=== PATIENT | female | born 1970 | race Caucasian/White ===

== ENCOUNTER 2016-06-21 08:59 | Observation (INO) | payer OTHER ==
[~2016-06-21] VITALS: Ht 154.9 cm; Wt 80.2 kg
[~2016-06-21 08:59] MED LIST: AMPH20CA PO; ATRV10T PO; BUPR200T2 PO; CYCL10TA9 PO; HYDR-3825 PO; KLO1T PO; SERT20OR6 PO; TOPI50TA PO; TOPI50TA88 PO
[2016-06-21 09:18] VITALS: BP 126/67; PULSE 87; RESP 17; O2SAT 100
--- NOTE | 2016-06-21 09:27 | ED.REPORT ---
HPI-General Illness Date of Service Jun 21, 2016 ED Provider: Harleen Bruno MD A 45 year old female with a history of migraines, anxiety, and depression presents to the ED from complaining of severe headache onset 5 days ago with numbness in her head. Headache has not been relieved with the patient's normal medication Maxalt, patient reporting that this head ache is different than baseline headaches. Per , the patient has had intermittent slurred speech and a slight facial droop. Associated symptoms include blurry vision, tinnitus, photophobia, abdomen being "dry and pasty" , her "tongue feeling weird", and the left side of her face "feels different." She denies any fever, cough, chills, or incontinence. Patient reports an episode of chest pain 2 weeks ago, similar to episodes she has experienced in the past that were related to anxiety. Nursing Notes Stated Complaint: MIGRAINE Chief Complaint: Headache Nursing Notes Reviewed: Yes Allergies: Coded Allergies: Penicillins (Verified Allergy, Unknown, 11/21/15) oxycodone HCl (Verified Adverse Reaction, Mild, 04/14/15) Scheduled Atorvastatin (Lipitor) 10 Mg Tab 10 MG PO HS Calcium Carbonate (Calcium) 600 Mg Tablet 600 MG PO DAILY Ferrous Sulfate (Iron) 325 Mg Tablet 325 MG PO DAILY Sertraline HCl (Sertraline) 100 Mg Tablet 200 MG PO HS Topiramate (Topamax) 50 Mg Tablet 100 MG PO HS Scheduled PRN Clonazepam (Clonazepam) 1 Mg Tablet 1 MG PO HS PRN PRN For Anxiety Cyclobenzaprine (Cyclobenzaprine) 10 Mg Tablet 10 MG PO PRN Spasms Hydrocodone-Acetaminophen 7.5-325 mg (Hydrocodone-Acetaminophen 7.5-325 mg) 1 Each Tablet 1 TABLET PO Q4H PRN PRN For Pain Rizatriptan (Maxalt) 10 Mg Tablet 10 MG PO PRN Migraines General Time Seen by MD: 09:20 Chief Complaint Headache Hx Obtained From: Patient Arrived By: Walk-in Sudden in Onset?: No Onset Occurred: 5 days ago Symptom Duration: Since onset Location: : Head Severity: Current: Moderate Severity: Maximum: Moderate Recent Healthcare: Recent doctor visit Similar Sx Previous: No )( TPA Administration/Criteria Stroke Thrombolytic Therapy : TPA Considered: No TPA Administered Intravenously: No, exclusion criteria (symptoms for greater than 4 days. Not TPA candidate.) NIH Stroke Scale Level of Consciousness: Alert and responsive (0) Ask Month & Age: Both questions right (0) Open/Close Eyes/Hand Jig Filler: Performs both tasks (0) Horizontal EO Movements: None (0) Visual Linda: No visual loss (0) Facial Palsy: Minor paralysis (1) Right Arm Motor Drift (10s): No drift 10 sec (0) Left Arm Motor Drift (10s): No drift 10 sec (0) Right Leg Motor Drift (5s): No drift 5 sec (0) Left Leg Motor Drift (5s): No drift 5 sec (0) Limb Ataxia FNF/Heel-Mathis: Ataxia in 2 limbs (2) Sensation (Arms/Legs/Face): Pinprick less sharp (1) Language Aphasia: No aphasia, normal (0) Dysarthria: No dysarthria, normal (0) Extinction/Inattention: No exctinct/inattent (0) NIHSS Score: 4 Time NIHSS Performed: 09:20 Date NIHSS Performed: Jun 21, 2016 Past Medical History Past Medical History 2 weeks ago, patient was seen for chest pain and stabbing neck pain, the episode lasting 10 minutes. She reports episodes of similar pain occuring in the past that were related to anxiety. Migraines, usually takes Maxalt Anxiety Reports: Depression (Treated with medication.) Past Surgical History left ankle, right elbow, 2 breast reductions, osteo in right thumb Reports: Cholecystectomy, Hysterectomy Smoking History Former Smoker Social History Alcohol Use: Denies alcohol use Drug Use: Denies drug use Occupation lives with boyfriend, Review of Systems Slight facial droop. Left side of face "feels different." tinnitus abdomen "dry and pasty" tongue is "weird" Full Review of Systems Constitutional: Denies: Chills, Fever Eyes: Reports: Blurred bilateral, Photophobia Respiratory: Denies: Non-productive cough Female: Denies: Incontinence Neurologic: Reports: Headache, Numbness (head), Slurred speech Complete sys rev & neg: except as marked. Physical Exam visual acuity: 20/25 bilateral 20/30 Right 20/30 Left Vital Signs Vital Signs Date Time Temp Pulse Resp B/P Pulse Ox O2 Delivery O2 Flow Rate FiO2 06/21/16 11:24 77 13 113/52 100 Room Air 06/21/16 09:18 36.6 87 17 126/67 100 Room Air Initial VS: Reviewed General/Constitutional: Well-developed, Well-nourished Head / Eyes: Atraumatic, Normocephalic Neck: Supple, Non-tender General/Constitutional: Awake, Alert Head / Eyes: PERRL, No nystagmus Grossly blurry vision, but no visual field deficit. ENT: Atraumatic, Mucous membranes moist Respiratory / Chest: Atraumatic, Breath sounds NL, Breath sounds = bilat, No respiratory distress, No rales, No rhonchi, No wheezing Cardiovascular: Heart rate NL, Regular rhythm, Heart sounds NL, No gallop, No murmurs, No rubs Abdomen: No guarding, No rebound Upper Extremities Upper Extremity / MS: No edema Skin: Atraumatic, Color NL, Warm, Dry neuro: NIH is 4 Mild right-sided facial droop. Tongue deviates slightly to the left. Mild decreased sensation on entire right side. Mild ataxia on right side with finger nose and heel mathis. Interpretation & Diagnostics Interpretation & Diagnostics: UA clean neg urine preg Lab Results Interpretation Result Diagram: 06/21/16 0930 06/21/16 0930 Test 06/21/16 09:30 06/21/16 11:50 White Blood Count 9.3th/mm3 (3.8-10.1) Red Blood Count 4.47mil/mm3 (3.90-5.20) Hemoglobin 12.2g/dL (12.0-15.6) Hematocrit 38.0% (35.0-46.0) Mean Corpuscular Volume 85.0fL (81-100) Mean Corpuscular Hemoglobin 27.3pg (27.0-35.0) Mean Corpuscular Hemoglobin Concent 32.1% (32.0-37.0) Red Cell Distribution Width 14.8% (12.3-15.4) Platelet Count 247bil/L (150-400) Neutrophils (%) (Auto) 67.9% (40-74) Lymphocytes (%) (Auto) 22.6% (14-46) Monocytes (%) (Auto) 7.2% (4-12) Eosinophils (%) (Auto) 1.7% (0-5) Basophils (%) (Auto) 0.2% (0-3) Sodium Level 139mEq/L (134-144) Potassium Level 3.9mEq/L (3.5-5.2) Chloride Level 103mEq/L (97-108) Carbon Dioxide Level 21mmol/L (18-29) Blood Urea Nitrogen 10mg/dL (6-24) Creatinine 0.81mg/dL (0.57-1.00) Estimat Glomerular Filtration Rate 109mL/min (>59) Glucose Level 122mg/dL (60-99) Calcium Level 9.0mg/dL (8.5-10.1) Total Bilirubin 0.2mg/dL (0.0-1.2) Aspartate Amino Transf (AST/SGOT) 12U/L (0-50) Alanine Aminotransferase (ALT/SGPT) 6U/L (0-32) Alkaline Phosphatase 77U/L (25-150) Total Protein 6.7g/dL (6.4-8.4) Albumin 3.5g/dL (3.4-5.0) Hold Elizondo Top Tube Received (Received) Hold Urine Received (Received) Lab Results Interpretation: PROCEDURE: MRI STROKE PROTOCOL ([id number]) Pre- and post-contrast brain MRI, non-contrast brain MR angiogram, pre- and postcontrast neck MR angiogram IMPRESSION: BRAIN MRI: 1. No acute intracranial abnormalities. 2. Bilateral ethmoid and maxillary sinus disease. BRAIN MR ANGIOGRAM: Normal anterior and posterior circulations bilaterally. NECK MR ANGIOGRAM: 1. No significant stenosis or occlusion in carotid arteries bilaterally. 2. No significant stenosis or occlusion invertebral arteries bilaterally. The estimate of stenosis included in the report of the imaging study was calculated using the NASCET method Dictated by: Mahesh Nelson M.D. on 06/21/2016 at 12:31 Approved by: Mahesh Nelson M.D. on 06/21/2016 at 12:38 PROCEDURE: US BILATERAL DUPLEX DOPPLER IMAGING OF THE CAROTIDS ([id number]) IMPRESSION: Normal carotid Doppler ultrasound exam. Dictated by: Mahesh Nelson M.D. on 06/21/2016 at 13:17 Approved by: Mahesh Nelson M.D. on 06/21/2016 at 13:19 ECG Interpretation ECG Interpretation: Rate is 78. Sinus rhythm. Left bundle branch block. No ischemia. Similar to 04/14/15. Time: 10:39 Interpreted by: ED physician CT Head Interpretation IMPRESSION: Small focus of presumably artifactual high density within the right anterosuperior frontal lobe. However, MRI may be helpful to assess for the less likely possibility of subarachnoid hemorrhage. Findings and recommendations discussed with Dr. Bruno on 06.04.16 at 1015 hrs. Dictated by: Jessica May M.D. on 06/21/2016 at 10:11 Approved by: Jessica May M.D. on 06/21/2016 at 10:16 Study: Head CT no contrast Interpretation / Wet Read by: Interpret - Radiologist Re-Eval/Medical Decision Source of Hx: Old records Time of Eval: 10:35 Re-Evaluation/Progress Note: Explained that imaging test results suggest no tumor, no mass or acute stroke. Explained discussion with radioslogist. Explained that patient exhibits stroke symptoms. Explained plan for admission. Patient understands and agrees with the plan. All questions addressed. Consultation #1: Referral / Consult Name: Jessica May MD Call Returned at: 10:15 Digital Printer Operator: Agrees with plan Note: Discussed patient case with Dr. May, radiologist. Artifact vs. subarachnoid hemorrhage, small on right side and will follow up with CT. Consultation #2: Referral / Consult Name: Jaspal Tran DO Consulted With: Hospitalist Call Returned at: 11:13 Digital Printer Operator: Agrees with eval, Agrees with plan, Accepts admit Note: Discussed patient case with Dr. Tran who accepts patient admit. Counseled Regarding: Diagnosis, Lab results, Need for follow-up, Need for admission Discharge & Departure Departure Notes Symptoms for >4days. Not a TPA candidate. Primary Impression: Stroke Disposition: ADMITTED TO HOSPITAL Discharge Condition All VS Reviewed: Yes Condition: Stable Referrals: Nicholas Aguilar MD (PCP) Antonellaibjose Attestation Portions of this note were transcribed by Abdullahi Villegas. I, Dr. Bruno personally performed the history, physical exam and medical decision-making; I reviewed and confirmed the accuracy of the information in the transcribed note. Signed by: Rachel Liz, 06/21/2016, 1036. copies to: Nicholas Aguilar MD, Shawna L MD Jun 21, 2016 09:27 Abdullahi Villegas Jun 21, 2016 09:33
[2016-06-21] MEDS ORDERED: 0.9% Sodium Chloride 1,000 ML IV ONE (09:33)
[2016-06-21 09:45] LABS: BASOPHILS % (AUTO) 0.2 % (0-3); EOSINOPHILS % (AUTO) 1.7 % (0-5); MONOCYTES % (AUTO) 7.2 % (4-12); Mean Corpuscular Hemoglobin 27.3 pg (27.0-35.0); NEUTROPHILS % (AUTO) 67.9 % (40-74); Platelet Count 247 bil/L (150-400)
[2016-06-21] MEDS ORDERED: Ondansetron 2 mg/mL 2 mL Inj IVPUSH PRN ×2 (09:50→11:20)
--- NOTE | 2016-06-21 10:17 | DRSVH ---
PROCEDURE: CT BRAIN WITHOUT CONTRAST ([id number]) INDICATIONS: Stroke TECHNIQUE: Noncontrast 4.5 mm thick angled axial sections acquired from the foramen magnum to the vertex, with c oronal reformats. COMPARISON: None. FINDINGS: Image quality: Excellent. CSF spaces: Basal cisterns are patent. No extra-axial fluid collections. Ventricles are normal in size and shape. Brain: No midline shift. No intracranial masses. There is a 4 mm diameter high density focus within the right anterosuperior frontal lobe, which is not seen on the coronal reconstructions. Alvarado-white matter interface is normal. Skull and face: Calvarium and visualized facial bones are intact, without suspicious lesions. Sinuses: Visualized sinuses and mastoids are clear. IMPRESSION: Small focus of presumably artifactual high density within the right anterosuperior fronta l lobe. However, MRI may be helpful to assess for the less likely possibility of subarachnoid hemorrh age. Findings and recommendations discussed with Dr. Bruno on 06.04.16 at 1015 hrs. Dictated by: Jessica May M.D. on 06/21/2016 at 10:11 Approved by: Jessica May M.D. on 06/21/2016 at 10:16
[2016-06-21] MEDS ORDERED: HYDROmorphone 0.5 mg/0.5 mL iSecure Syringe IVPUSH PRN (10:35)
[2016-06-21] MEDS ORDERED: TOPI50TA32 PO (10:57)
[2016-06-21] MEDS ORDERED: SERT100T9 PO (10:57)
[2016-06-21] MEDS ORDERED: RIZA10TA26 PO (10:59)
--- NOTE | 2016-06-21 11:00 | NUR ---
Evaluation completed. Please go to "Notes" then click on "Assessments and Notes" (bottom left corner of screen). Then select appropriate discipline tab on top of screen.
[2016-06-21] MEDS ORDERED: CALC600T12 PO (11:01)
[2016-06-21] MEDS ORDERED: FERR325T39 PO (11:01)
[2016-06-21] MEDS ORDERED: Alum-Mag Hydrox-Simeth 30 mL Suspension PO PRN (11:20)
[2016-06-21] MEDS ORDERED: Labetalol 5 mg/mL 4 mL Inj IVPUSH PRN (11:20)
[2016-06-21] MEDS ORDERED: Polyethylene Glycol (PEG) 17 Gm Powder PO PRN (11:20)
[2016-06-21 11:24] VITALS: BP 113/52; PULSE 77; RESP 13; O2SAT 100
[2016-06-21] MEDS ORDERED: HYDROmorphone 1 mg/mL Inj IVPUSH PRN (11:30)
--- NOTE | 2016-06-21 11:30 | PCM.HPMED ---
Subjective Date of Service Jun 21, 2016 Primary Provider: Admitting Physician: Primary Care Physician: Nicholas Aguilar MD Attending Physician: Chief Complaint: Severe headache with right-sided numbness of face and upper and lower extremities History of Present Illness: Patient is a 45-year-old female past medical history significant for hyperlipidemia in addition to severe migraine headaches presenting to ER today for severe headache not typical of migraine type in addition to right-sided facial numbness and tingling also involving the right hand and foot. Patient noted headache has been present since Saturday, generally her migraine headaches will be at least partially responsive to Maxalt, however this has not been the case. Additionally she began noting numbness and tingling of her right side which prompted additional concern. Her also noted she may have been slurring her speech and thought he observed a asymmetry of her face. Additional symptoms have included intermittent blurry vision, ringing in ears, some photophobia, and abdominal upset. Given this constellation of symptoms, concern for possible stroke TIA certainly present, and as such further observation for continued evaluation of possible cerebrovascular incident was deemed most prudent. During my evaluation patient notes headache has been improved with when necessary medications provided emergency department. She still notes an obvious sensation of left hand and foot in addition to face, though not as severe as prior. She denies any current weakness however, and slurred speech is not present. She additionally denies any current shortness of breath or chest pains. Denies any fever or chills. She notes appetite has been adequate. She is having normal bowel and bladder function. Review of Systems: 10 point review of systems was performed and entirely negative except for pertinent positives and negatives included in above history of present illness Allergies Coded Allergies: Penicillins (Verified Allergy, Unknown, 11/21/15) oxycodone HCl (Verified Adverse Reaction, Mild, 04/14/15) Home Medications Atorvastatin (Lipitor) 10 Mg Tab 10 MG PO HS (patient notes she does not take this often frequently forgetting) Calcium Carbonate (Calcium) 600 Mg Tablet 600 MG PO DAILY Ferrous Sulfate (Iron) 325 Mg Tablet 325 MG PO DAILY Sertraline HCl (Sertraline) 100 Mg Tablet 200 MG PO HS Topiramate (Topamax) 50 Mg Tablet 100 MG PO HS Scheduled PRN Clonazepam (Clonazepam) 1 Mg Tablet 1 MG PO HS PRN PRN For Anxiety Cyclobenzaprine (Cyclobenzaprine) 10 Mg Tablet 10 MG PO PRN Spasms Hydrocodone-Acetaminophen 7.5-325 mg (Hydrocodone-Acetaminophen 7.5-325 mg) 1 Each Tablet 1 TABLET PO Q4H PRN PRN For Pain Rizatriptan (Maxalt) 10 Mg Tablet 10 MG PO PRN Migraines PMH - 2 weeks ago, patient was seen for chest pain and stabbing neck pain, the episode lasting 10 minutes. She reprots episiodes of similar pain occuring in the past that were related to anxiety. - migraines, usually takes Maxsalt - Anxiety - Depression (Treated with medication.) Surgical History left ankle, right elbow, 2 breast reductions, osteo in right thumb Cholecystectomy, Hysterectomy Family History Mother: possible MS, hyperlipidemia Father: Kaci's disease. Social History Hx Alcohol Use: Yes ("very rarely") Hx Substance Use: No Smoking Status: Former Smoker Exam Vital Signs Vital Sign - Last Date Time Temp Pulse Resp B/P Pulse Ox O2 Delivery O2 Flow Rate FiO2 06/21/16 11:24 77 13 113/52 100 Room Air 06/21/16 09:18 36.6 General: Alert, Oriented X3, Cooperative, Mild Distress Head: Normal, Other (no skull deformity or asymmetry noted) Eyes: PERRLA, EOMI, Other (no nystagmus. ) Nose: Mucous Membr Moist/Wiseman Mouth: Mucous Membr Moist/Wiseman Neck: Supple, No Thyromegaly Chest & Lungs: Clear to auscultation & percussion Cardiovascular: Regular Rate/Rhythm Pulses: NL carotid, radial, femoral, DP, PT Abdomen: Non-tender, Non-distended, No hepatosplenomegaly Extremities: No cyanosis/clubbing/edma bilat Neurological: Grossly Neurologically Intact, Cranial Nerves 2-12 Intact, Normal Speech, Sensation Intact (though patient notes a little bit diminished or at least ought on right side, arms and legs. ), Cerebellar Function nl Finger -Nose Lab and Diagnostics Result Diagram: 06/21/1692906/21/16929 Assessment & Plan Some 45-year-old female past medical history of migraine type headaches in addition to hyperlipidemia presenting with atypical headache compare with previous since Saturday, in addition to right-sided numbness of arms legs and face. She was placed on observation for further evaluation of possible stroke/ TIA at this time. 1. Headache with right-sided sensory deficit - Patient placed on observation in accordance with TIA stroke protocol - MRI has been conducted and negative for any evidence of CVA. It did however demonstrate evidence of maxillary and ethmoid sinusitis. - Carotid Doppler also been performed and is unremarkable. - Echocardiogram was ordered and still pending - Patient has been placed on telemetry monitoring - PT OT and speech have been consulted. Patient has passed her swallow evaluation 2. Hyperlipidemia: - Patient is unsure precisely of either her current lipid levels, or medical history but it sounds as though she may have norbert hypercholesterolemia given mother's history of severely elevated lipids on her own condition at such a young age. - She has already been prescribed a statin however says she rarely remembers to take it, we will restarted at this time and encouraged tighter compliance in the future. - Regardless of whether she had a cerebrovascular incident at this time, certainly in the setting of hypercholesterolemia if it is as severe as it may be the case this would offer protection for the future. - We have an a.m. fasting lipid panel ordered and currently pending. 3. Anxiety/depression/mood disorder - Patient notes condition is relatively stable on current medications - Continue all medications at current doses at this time Disposition: Pending complete evaluation to rule out central ischemic event patient would likely be stable for discharge tomorrow for further outpatient evaluation. Pain Evaluation: Adequate Pain Control GI Prophylaxis: Not indicated VTE Prophylaxis: Sub-Q Heparin (Unfractionated) Resuscitation Status: CPR: Attempt Resuscitation Time spent 50 minutes Jaspal Tran DO Jun 21, 2016 11:30
--- NOTE | 2016-06-21 12:40 | DRSVH ---
PROCEDURE: MRI STROKE PROTOCOL ([id number]) Pre- and post-contrast brain MRI, non-contrast brain MR angiogram, pre- and postcontrast neck MR joana ogram INDICATIONS: Right facial droop and numbness TECHNIQUE: Brain: Noncontrast axial T1 spin echo, axial T2 fast spin echo, sagittal and axial FLAIR, coronal T2 fast spin echo, axial gradient echo, axial diffusion and ADC through the brain. After the administr ation of contrast, axial 3D VIBE of the cranial vasculature and brain. Brain MRA: Non-contrast 3-D time of flight MR angiogram, with multiple ztkmzgc-vgaanfyiy-omoefvysom (MIP) reformats performed. Neck MRA: Axial and sagittal TruFISP through the neck. Coronal dynamic MR angiogram during administ ration of contrast in the arterial and venous phases, with 3-dimenstional nzjkovg-zadjlzwcr-ysgxkhcbe n (MIP) reformats constructed from subtraction images. COMPARISON: [facility], CT, CT BRAIN WO CON, 06/21/2016, 9:56. FINDINGS: Image quality: Excellent. BRAIN: CSF spaces: Ventricles are normal in size and shape. Basal cisterns are patent. No extra-axial flu id collections. Brain: No intracranial bleeds or mass effects. Alvarado-white matter interface is normal. Diffusion we ighted images show no acute ischemic insults. Brainstem appears normal. Normal intravascular flow v oids are present. No abnormal intracranial enhancement. Skull and face: Calvarial marrow signal is normal. Orbits appear normal. Sinuses: Bilateral ethmoid and maxillary sinus mucosal thickening. The mastoids are clear. BRAIN MR ANGIOGRAM: Anterior circulation: Intracranial internal carotid arteries are normal in size and enhancement. Th e flow within the paired anterior cerebral arteries is normal and symmetric. The flow within the mid dle cerebral arteries is normal and symmetric. The anterior communicating artery is seen. No stenos es, occlusions, or aneurysms. Posterior circulation: The visualized portions of the vertebral arteries demonstrate normal caliber, and join to form a normal appearing basilar artery. The flow within the posterior cerebral arteries is normal and symmetric. No stenoses, occlusions, or aneurysms. NECK MR ANGIOGRAM: Carotids: Great vessels demonstrate a conventional anatomy as they arise from the aortic arch. The origins of the common carotid arteries appear patent. The calibers and courses of both common caroti d arteries are normal. The bifurcation regions appear normal bilaterally. The internal carotid karen zully demonstrate normal course and caliber. Posterior circulation: The origins of the vertebral arteries appear patent. More superior portions of both vertebral arteries demonstrate normal course and caliber, and join to form a normal appearing basilar artery. Miscellaneous: Subclavian arteries appear patent. Pre-contrast images through the neck show no soft tissue abnormalities. IMPRESSION: BRAIN MRI: 1. No acute intracranial abnormalities. 2. Bilateral ethmoid and maxillary sinus disease. BRAIN MR ANGIOGRAM: Normal anterior and posterior circulations bilaterally. NECK MR ANGIOGRAM: 1. No significant stenosis or occlusion in carotid arteries bilaterally. 2. No significant stenosis or occlusion invertebral arteries bilaterally. The estimate of stenosis included in the report of the imaging study was calculated using the NASCET method Dictated by: Mahesh Nelson M.D. on 06/21/2016 at 12:31 Approved by: Mahesh Nelson M.D. on 06/21/2016 at 12:38
--- NOTE | 2016-06-21 13:20 | DRSVH ---
PROCEDURE: US BILATERAL DUPLEX DOPPLER IMAGING OF THE CAROTIDS ([id number]) INDICATIONS: possible stroke/tia TECHNIQUE: Color and pulse Doppler interrogation was performed of both carotid systems, with image documentation and velocity measurements. COMPARISON: [facility], MR, MR STROKE PROTOCOL, 06/21/2016, 11:49. FINDINGS: All stenosis calculations are based on NASCET criteria. Right side: Brachial blood pressure: 126/67 mm Hg. Common Carotid Artery(Distal) PSV: 83.30 cm/s Internal Carotid Artery PSV- Proximal: 103.50 cm/s Mid-lon.80 cm/s Distal: 101.80 cm/s EDV - Proximal: 38.80 cm/s Mid-lon.60 cm/s Distal: 45.70 cm/s External Carotid Artery(Proximal) PSV: 104.10 cm/s ICA/CCA PSV ratio: 1.24 Alvarado scale imaging description: Normal Percent internal carotid artery stenosis: No significant stenosis. Vertebral artery: Flow direction is antegrade. Left side: Brachial blood pressure: 113/52 mm Hg. Common Carotid Artery(Distal) PSV: 109.70 cm/s Internal Carotid Artery PSV - Proximal: 69.90 cm/s Mid-lon cm/s Distal: 92 cm/s EDV - Proximal: 31.40 cm/s Mid-lon.50 cm/s Distal: 42.20 cm/s External Carotid Artery(Proximal) PSV: 84.60 cm/s ICA/CCA PSV ratio: 0.98 Alvarado scale imaging description: Normal Percent internal carotid artery stenosis: No significant stenosis. Vertebral artery: Flow direction is antegrade. IMPRESSION: Normal carotid Doppler ultrasound exam. Dictated by: Mahesh Nelson M.D. on 06/21/2016 at 13:17 Approved by: Mahesh Nelson M.D. on 06/21/2016 at 13:19
[2016-06-21 14:03] VITALS: BP 126/90; PULSE 83; RESP 19; O2SAT 96
--- NOTE | 2016-06-21 15:22 | NUR ---
Admit Pt admitted to [facility] room 3007 from ED, report received from Les Zacarias RN, pt arrived via stretcher and was able to transfer self to bed. Observed slightly unsteady gait, pt able to make needs known, c/o of mild headache. Pt currently NPO, c/o of dry mouth, MD notified of pt's arrival. Will continue to monitor.
[2016-06-21 16:42] VITALS: BP 105/68; PULSE 71; RESP 20; O2SAT 94
[2016-06-21] MEDS: Heparin 5,000 Unit/mL Inj SUBQ SCH (16:54)
[2016-06-21] MEDS: Fluticasone 0.05% 15 Spray/2 Gm 16 Gm Nasal Spray NASAL SCH ×2 (17:29→21:40)
[2016-06-21] MEDS: HYDROcodone-APAP 7.5-325 mg Tablet PO PRN ×2 (18:23→22:25)
[2016-06-21 21:27] VITALS: BP 96/64; PULSE 75; RESP 20; O2SAT 95
[2016-06-22] MEDS: Heparin 5,000 Unit/mL Inj SUBQ SCH ×2 (00:12→09:47)
[2016-06-22 00:44] VITALS: BP 118/76; PULSE 75; RESP 20; O2SAT 97
--- NOTE | 2016-06-22 02:22 | NUR ---
Bladder Scan PVR x1 @ 2100 60cc after voiding 300cc Addendum: 06/22/16 at 0628 by STEPHEN JACKSON RN PVR x2 @ 06:20 50cc after voiding 350cc
[2016-06-22 04:00] VITALS: PULSE 78
[2016-06-22 06:08] VITALS: BP 118/70; PULSE 80; RESP 20; O2SAT 98
[2016-06-22 08:00] VITALS: PULSE 72
--- NOTE | 2016-06-22 08:01 | PCM.DC.MED ---
Discharge Summary Date of Service Jun 22, 2016 Dates of Hospitalization Date of Hospital Admission Jun 21, 2016 at 12:55 Date of Discharge: Jun 22, 2016 Providers: Admitting Physician: Jaspal Tran DO Primary Care Physician: Nicholas Aguilar MD Attending Physician: Jaspal Tran DO Diagnosis at Time of Discharge Diagnosis at Time of Discharge migraine w/ resolved new onset paresthesia Procedures XRay, CTs & MRIs echo - Echocardiogram Report Name: JAE GREENBERG Date: 0 06/22/2016 Height: 61 in Hospital Exam Location: [facility] Weight: 175 lb Gender: Female BSA: 1.8 m2 : 1970 Age: 45 yrs BP: 118/70 mmHg Reason For Study: STROKE Ordering Physician: Performed By: Hien Arredondo Referring Physician: Maranda Aguilar Interpretation Summary The left ventricle is normal in size, wall thickness, and systolic function without any focal wall motion abnormalities. The ejection fraction is estimated to be 60-65%. The right ventricle is normal in size and function. Pulmonary artery pressures cannot be estimated because of the lack of a measurable TR jet velocity. Both atria are normal in size. There is no Doppler evidence for an atrial septal defect. Injection of contrast documented no interatrial shunt. There is no obvious cardiac source of embolus noted on this transthoracic echocardiogram. There is no significant valvular heart disease. The aortic root is normal size. PROCEDURE: MRI STROKE PROTOCOL ([id number]) Pre- and post-contrast brain MRI, non-contrast brain MR angiogram, pre- and postcontrast neck MR angiogram INDICATIONS: Right facial droop and numbness TECHNIQUE: Brain: Noncontrast axial T1 spin echo, axial T2 fast spin echo, sagittal and axial FLAIR, coronal T2 fast spin echo, axial gradient echo, axial diffusion and ADC through the brain. After the administration of contrast, axial 3D VIBE of the cranial vasculature and brain. Brain MRA: Non-contrast 3-D time of flight MR angiogram, with multiple maximum- intensity-projection (MIP) reformats performed. Neck MRA: Axial and sagittal TruFISP through the neck. Coronal dynamic MR angiogram during administration of contrast in the arterial and venous phases, with 3-dimenstional blnaekf-esrbgtxiu-zmqgpvebva (MIP) reformats constructed from subtraction images. COMPARISON: [facility], CT, CT BRAIN WO CON, 06/21/2016, 9:56. FINDINGS: Image quality: Excellent. BRAIN: CSF spaces: Ventricles are normal in size and shape. Basal cisterns are patent. No extra-axial fluid collections. Brain: No intracranial bleeds or mass effects. Alvarado-white matter interface is normal. Diffusion weighted images show no acute ischemic insults. Brainstem appears normal. Normal intravascular flow voids are present. No abnormal intracranial enhancement. Skull and face: Calvarial marrow signal is normal. Orbits appear normal. Sinuses: Bilateral ethmoid and maxillary sinus mucosal thickening. The mastoids are clear. BRAIN MR ANGIOGRAM: Anterior circulation: Intracranial internal carotid arteries are normal in size and enhancement. The flow within the paired anterior cerebral arteries is normal and symmetric. The flow within the middle cerebral arteries is normal and symmetric. The anterior communicating artery is seen. No stenoses, occlusions, or aneurysms. Posterior circulation: The visualized portions of the vertebral arteries demonstrate normal caliber, and join to form a normal appearing basilar artery. The flow within the posterior cerebral arteries is normal and symmetric. No stenoses, occlusions, or aneurysms. NECK MR ANGIOGRAM: Carotids: Great vessels demonstrate a conventional anatomy as they arise from the aortic arch. The origins of the common carotid arteries appear patent. The calibers and courses of both common carotid arteries are normal. The bifurcation regions appear normal bilaterally. The internal carotid arteries demonstrate normal course and caliber. Posterior circulation: The origins of the vertebral arteries appear patent. More superior portions of both vertebral arteries demonstrate normal course and caliber, and join to form a normal appearing basilar artery. Miscellaneous: Subclavian arteries appear patent. Pre-contrast images through the neck show no soft tissue abnormalities. IMPRESSION: BRAIN MRI: 1. No acute intracranial abnormalities. 2. Bilateral ethmoid and maxillary sinus disease. BRAIN MR ANGIOGRAM: Normal anterior and posterior circulations bilaterally. NECK MR ANGIOGRAM: 1. No significant stenosis or occlusion in carotid arteries bilaterally. 2. No significant stenosis or occlusion invertebral arteries bilaterally. The estimate of stenosis included in the report of the imaging study was calculated using the NASCET method PROCEDURE: US BILATERAL DUPLEX DOPPLER IMAGING OF THE CAROTIDS ([id number]) INDICATIONS: possible stroke/tia TECHNIQUE: Color and pulse Doppler interrogation was performed of both carotid systems, with image documentation and velocity measurements. COMPARISON: [facility], MR, MR STROKE PROTOCOL, 06/21/2016, 11:49. FINDINGS: All stenosis calculations are based on NASCET criteria. Right side: Brachial blood pressure: 126/67 mm Hg. Common Carotid Artery(Distal) PSV: 83.30 cm/s Internal Carotid Artery PSV- Proximal: 103.50 cm/s Mid-lon.80 cm/s Distal: 101.80 cm/s EDV - Proximal: 38.80 cm/s Mid-lon.60 cm/s Distal: 45.70 cm/s External Carotid Artery(Proximal) PSV: 104.10 cm/s ICA/CCA PSV ratio: 1.24 Alvarado scale imaging description: Normal Percent internal carotid artery stenosis: No significant stenosis. Vertebral artery: Flow direction is antegrade. Left side: Brachial blood pressure: 113/52 mm Hg. Common Carotid Artery(Distal) PSV: 109.70 cm/s Internal Carotid Artery PSV - Proximal: 69.90 cm/s Mid-lon cm/s Distal: 92 cm/s EDV - Proximal: 31.40 cm/s Mid-lon.50 cm/s Distal: 42.20 cm/s External Carotid Artery(Proximal) PSV: 84.60 cm/s ICA/CCA PSV ratio: 0.98 Alvarado scale imaging description: Normal Percent internal carotid artery stenosis: No significant stenosis. Vertebral artery: Flow direction is antegrade. IMPRESSION: Normal carotid Doppler ultrasound exam. PROCEDURE: CT BRAIN WITHOUT CONTRAST ([id number]) INDICATIONS: Stroke TECHNIQUE: Noncontrast 4.5 mm thick angled axial sections acquired from the foramen magnum to the vertex, with coronal reformats. COMPARISON: None. FINDINGS: Image quality: Excellent. CSF spaces: Basal cisterns are patent. No extra-axial fluid collections. Ventricles are normal in size and shape. Brain: No midline shift. No intracranial masses. There is a 4 mm diameter high density focus within the right anterosuperior frontal lobe, which is not seen on the coronal reconstructions. Alvarado-white matter interface is normal. Skull and face: Calvarium and visualized facial bones are intact, without suspicious lesions. Sinuses: Visualized sinuses and mastoids are clear. IMPRESSION: Small focus of presumably artifactual high density within the right anterosuperior frontal lobe. However, MRI may be helpful to assess for the less likely possibility of subarachnoid hemorrhage. Findings and recommendations discussed with Dr. Bruno on 06.04.16 at 1015 hrs. Brief History Patient is a 45-year-old female past medical history significant for hyperlipidemia in addition to severe migraine headaches presenting to ER today for severe headache not typical of migraine type in addition to right-sided facial numbness and tingling also involving the right hand and foot. Patient noted headache has been present since Saturday, generally her migraine headaches will be at least partially responsive to Maxalt, however this has not been the case. Additionally she began noting numbness and tingling of her right side which prompted additional concern. Her also noted she may have been slurring her speech and thought he observed a asymmetry of her face. Additional symptoms have included intermittent blurry vision, ringing in ears, some photophobia, and abdominal upset. Given this constellation of symptoms, concern for possible stroke TIA certainly present, and as such further observation for continued evaluation of possible cerebrovascular incident was deemed most prudent. w/ admitting hospitalist, headache has been improved per emergency department therapy. She still notes an obvious sensation of left hand and foot in addition to face, though not as severe as prior. She denies any current weakness however, and slurred speech is not present. She additionally denies any current shortness of breath or chest pains. Denies any fever or chills. She notes appetite has been adequate. She is having normal bowel and bladder function. on day of dishcarge, gait steady, resolved paresthesia, resolved HAMMOND after sleeping well overnight. Hospital Course Some 45-year-old female past medical history of migraine type headaches in addition to hyperlipidemia presenting with atypical headache compare with previous since Saturday, in addition to right-sided numbness of arms legs and face. She was placed on observation for further evaluation of possible stroke/ TIA negative imaging, resolved symptoms on day of discharge. follow up w/ PCP to establish neurologist for migraine. in meanwhile resume excedrine migraine if home maxalt doesn't improve recurrent migraine. 1. Headache with right-sided sensory deficit - Patient placed on observation in accordance with TIA stroke protocol - MRI - maxillary and ethmoid sinusitis. -- PRN fluticasone w/ benefit also ocean spray - telemetry monitoring - s/p PT and speech therapy - no further recommendation 2. Hyperlipidemia: - She has already been prescribed a statin however says she rarely remembers to take it, we will restarted at this time and encouraged tighter compliance in the future. - Regardless of whether she had a cerebrovascular incident at this time, certainly in the setting of hypercholesterolemia if it is as severe as it may be the case this would offer protection for the future. - We have an a.m. fasting lipid panel 3. Anxiety/depression/mood disorder - Patient notes condition is relatively stable on current medications - Continue all medications at current doses at this time Exam Vital Signs (Last) Date Time Temp Pulse Resp B/P Pulse Ox O2 Delivery O2 Flow Rate FiO2 06/22/16 06:08 36.5 80 20 118/70 98 Room Air Test 06/21/16 09:30 06/21/16 11:50 White Blood Count 9.3th/mm3 (3.8-10.1) Red Blood Count 4.47mil/mm3 (3.90-5.20) Hemoglobin 12.2g/dL (12.0-15.6) Hematocrit 38.0% (35.0-46.0) Mean Corpuscular Volume 85.0fL (81-100) Mean Corpuscular Hemoglobin 27.3pg (27.0-35.0) Mean Corpuscular Hemoglobin Concent 32.1% (32.0-37.0) Red Cell Distribution Width 14.8% (12.3-15.4) Platelet Count 247bil/L (150-400) Neutrophils (%) (Auto) 67.9% (40-74) Lymphocytes (%) (Auto) 22.6% (14-46) Monocytes (%) (Auto) 7.2% (4-12) Eosinophils (%) (Auto) 1.7% (0-5) Basophils (%) (Auto) 0.2% (0-3) Sodium Level 139mEq/L (134-144) Potassium Level 3.9mEq/L (3.5-5.2) Chloride Level 103mEq/L (97-108) Carbon Dioxide Level 21mmol/L (18-29) Blood Urea Nitrogen 10mg/dL (6-24) Creatinine 0.81mg/dL (0.57-1.00) Estimat Glomerular Filtration Rate 109mL/min (>59) Glucose Level 122mg/dL (60-99) Calcium Level 9.0mg/dL (8.5-10.1) Total Bilirubin 0.2mg/dL (0.0-1.2) Aspartate Amino Transf (AST/SGOT) 12U/L (0-50) Alanine Aminotransferase (ALT/SGPT) 6U/L (0-32) Alkaline Phosphatase 77U/L (25-150) Total Protein 6.7g/dL (6.4-8.4) Albumin 3.5g/dL (3.4-5.0) Hold Elizondo Top Tube Received (Received) Hold Urine Received (Received) Discharge Medications Discharge Medications Atorvastatin (Lipitor) 10 Mg Tab 10 MG PO HS (Reported) Calcium Carbonate (Calcium) 600 Mg Tablet 600 MG PO DAILY (Reported) Ferrous Sulfate (Iron) 325 Mg Tablet 325 MG PO DAILY (Reported) Sertraline HCl (Sertraline) 100 Mg Tablet 200 MG PO HS (Reported) Topiramate (Topamax) 50 Mg Tablet 100 MG PO HS (Reported) As needed Clonazepam (Clonazepam) 1 Mg Tablet 1 MG PO HS PRN PRN For Anxiety (Reported) Cyclobenzaprine (Cyclobenzaprine) 10 Mg Tablet 10 MG PO PRN Spasms (Reported) Hydrocodone-Acetaminophen 7.5-325 mg (Hydrocodone-Acetaminophen 7.5-325 mg) 1 Each Tablet 1 TABLET PO Q4H PRN PRN For Pain (Reported) Rizatriptan (Maxalt) 10 Mg Tablet 10 MG PO PRN Migraines (Reported) Followup Plan Disposition: follow up with PCP for a referral to neurologist for changing migraines. Time spent > 30 min Jon Marc MD Jun 22, 2016 07:48
[2016-06-22 08:34] VITALS: BP 109/68; PULSE 76; RESP 20; O2SAT 98
[2016-06-22] MEDS ORDERED: Sodium Chloride NAS 45 mL Spray NASAL PRN (08:40)
[2016-06-22] MEDS ORDERED: Sodium Chloride NAS 45 mL Spray NASAL ONE (08:40)
--- NOTE | 2016-06-22 09:07 | DRSVH ---
[facility] [address] [address] Echocardiogram Report Name: JAE GREENBERG Date: 06/22/2016 Height: 61 in Hospital Exam Location: [facility] Weight: 175 lb Gender: Female BSA: 1.8 m2 : 1970 Age: 45 yrs BP: 118/70 mmHg Reason For Study: STROKE Ordering Physician: Performed By: Hien Arredondo Referring Physician: Maranda Aguilar Interpretation Summary The left ventricle is normal in size, wall thickness, and systolic function without any focal wall motion abnormalities. The ejection fraction is estimated to be 60-65%. The right ventricle is normal in size and function. Pulmonary artery pressures cannot be estimated because of the lack of a measurable TR jet velocity. Both atria are normal in size. There is no Doppler evidence for an atrial septal defect. Injection of contrast documented no interatrial shunt. There is no obvious cardiac source of embolus noted on this transthoracic echocardiogram. There is no significant valvular heart disease. The aortic root is normal size. Procedure: A two-dimensional transthoracic echocardiogram with color flow and Doppler was performed. The study quality was technically adequate. There is no prior echocardiogram noted for this patient. Bubble study is performed. The patient was in sinus during the exam. Left Ventricle: The left ventricle is normal in size, wall thickness, and systolic function without any focal wall motion abnormalities. The ejection fraction is estimated to be 60-65%. Assessment of diastolic parameters indicates normal left ventricular diastolic function and normal filling pressures. Right Ventricle: The right ventricle is normal in size and function. Atria: Both atria are normal in size. There is no Doppler evidence for an atrial septal defect. Injection of contrast documented no interatrial shunt. Mitral Valve: The mitral valve leaflets appear normal. There is no evidence of stenosis, fluttering, or prolapse. There is trace mitral regurgitation. Aortic Valve: The aortic valve is trileaflet. The aortic valve opens well. No aortic regurgitation is present. Tricuspid Valve: The tricuspid valve leaflets are thin and pliable. No tricuspid regurgitation. Pulmonary artery pressures cannot be estimated because of the lack of a measurable TR jet velocity. Pulmonic Valve: The pulmonic valve is not well seen, but is grossly normal. There is a trace or physiologic amount of pulmonic regurgitation. There is no significant valvular heart disease. Great Vessels: The aortic root is normal size. The dimensions of the ascending aorta are normal. The pulmonary artery is normal size. The IVC is of normal diameter and collapses greater than 50% with a sniff. This suggests a low right atrial pressure of 3 mm Hg. Pericardium/ Pleura There is no pericardial effusion. There is no pleural effusion. MMode/2D Measurements & Calculations LVIDd: 4.5 cm LA dimension: 3.8 cm RA long axis LVOT diam: 1.9 cm LVIDs: 2.7 cm AoV Opening FS: 40.6 % LA A2 area: 16.0 cm RA area IVSd: 1.0 cm LA A4 area: 18.5 cm Ao root diam LVPWd: 0.93 cm LA length (vol) : 9.9 cm RA vol asc Aorta Diam LA vol: 55.0 ml : 21.2 ml LA vol index RA Ao Arch Diam (Prox : 11.9 mm/ Trans): 2.6 cm RVDd major IVC diam: 1.5 cm : 6.4 cm LV carter. diameter/BSA LV sys. diameter/BSA RVD2 (mid) (cm/m^2): 2.5 (cm/m^2): 1.5 : 2.6 cm Doppler Measurements & Calculations Ao V2 max MV E max eugene MV E/A: 1.3 PA V2 max : 130.2 cm/sec : 83.5 cm/sec Med Peak E' Eugene : 87.0 cm/sec Ao max P.8 mmHg MV A max eugene PA mean PG Ao mean P.0 mmHg : 63.9 cm/sec E/E' med: 7.9 LVOT Max Eugene MV P1/2t: 68.2 msec Lat Peak E' Eugene PA Accel Time : 96.1 cm/sec : 0.09 sec MARY(I,D): 2.1 cm E/E' lat: 10.5 sev ratio: 0.72 E/e' average Pulm A Revs Dur MV A dur : 0.12 sec MV P1/2t max eugene Ao V2 mean LV V1 max PG PA V2 mean : 96.4 cm/sec : 57.8 cm/sec MVA(P1/2t): 3.2 cm2 Ao V2 VTI: 27.3 cm LV V1 VTI MARY(V,D): 2.2 cm2 : 19.6 cm MARY indexed to BSA Pulm A Revs Dur - MV (cm^2/m^2): 1.2 A Dur: 0.00 msec Reading Physician:MICHEAL
[2016-06-22] MEDS: Fluticasone 0.05% 15 Spray/2 Gm 16 Gm Nasal Spray NASAL SCH (09:46)
[2016-06-22 12:55] VITALS: BP 103/69; PULSE 79; RESP 19; O2SAT 97
--- NOTE | 2016-06-22 14:26 | NUR ---
Social Work: Screening / D/C Data: Pt is on day 1 of hospitalization. Pt is a 45 y/o female admitted for stroke. Pt's PCP is Dr Aguilar, pt's insurance is [facility]. EMR reviewed. Therapies recommending home with possible outpt. No further d/c planning needs. [employer] will continue to follow if needs arise. Assessment: Pt who is independent at baseline. Plan: Pt will d/c home today via POV. No further d/c planning needs. [employer] will continue to follow if needs arise. SHELL Olivas
--- NOTE | 2016-06-22 14:29 | PCM.DIMED ---
Discharge Instructions Date of Service Jun 22, 2016 Dates of Hospitalization Jun 21, 2016 at 12:55 Discharge Diagnosis Discharge Diagnosis migraine w/ resolved new onset paresthesia Medication Instructions --please take your lipitor until seen by the neurologist or Primary care. --consider alternating w/ eccedrine w/ maxalt or return to the hospital for headache. --as needed fluticasone/ocean spray for sinus congestion. --follow up with primary care to refer you to a neurologist for changing migraine evaluation. He may consider further MRI study but so far current studies are not consistent w/ a stroke/TIA/CVA, but please take your lipitor until seen by the neurologist. Jon Marc MD Jun 22, 2016 14:29
[2016-06-22] MEDS ORDERED: SALT177A NS (14:35)
[2016-06-22] MEDS ORDERED: FLUT16SP NS (14:35)
--- NOTE | 2016-06-22 15:35 | NUR ---
Discharge Reviewed discharge paperwork, care notes and medications with pt and disclaimer signed. IV DCd intact, tele removed, all belonging with pt. Denies pain and no observable sx of distress. Pt refuses WC and wants to walk out of hospital on foot with . Pt strong and steady with no sx of deficits.
== END 2016-06-22 15:40 | disposition home or self-care (01) ==
LOC: SED 08:59 → MPC 12:55
PROVIDERS: ADMIT Family Medicine; ATTEND Family Medicine
DX: G43.909 Migraine, unspecified, not intractable, without status migrainosus (principal); R29.810 Facial weakness; R47.81 Slurred speech; E78.5 Hyperlipidemia, unspecified; F41.9 Anxiety disorder, unspecified; F32.9 Major depressive disorder, single episode, unspecified; R29.704 NIHSS score 4; Z88.0 Allergy status to penicillin; Z88.8 Allergy status to other drugs, medicaments and biological substances; Z90.710 Acquired absence of both cervix and uterus; Z87.891 Personal history of nicotine dependence
CPT/HCPCS: 36415; 70450; 70549; 70553; 80053; 81025; 85025; 92610; 93005; 93880; 96361; 96374; 96375; 96376; 97161; 99285; A9585; C8929; G0378; G8978; G8979; G8980; J1170; J1644; J2405; J3360; J7030